=== PATIENT | female | born 1975 | race Caucasian/White ===

== ENCOUNTER 2023-09-02 11:54 | Emergency (ER) | payer OTHER ==
[2023-09-02] MEDS: Adenosine 6 MG/2 ML SDV IVPUSH ONE ×2 (12:15→12:22)
[2023-09-02 12:17] LABS: BASOPHILS ABSOLUTE AUTO 0.03 K/uL (0.00-0.10); BASOPHILS PERCENT AUTO 0.3 % (0.1-1.3); EOSINOPHILS PERCENT AUTO 1.1 % (0.0-5.4); HEMATOCRIT 25.5 % (34.3-46.0); HEMOGLOBIN 8.4 g/dL (11.2-15.5); IMMATURE GRAN ABSOLUTE AUTO 0.21 K/uL (0.00-0.23); IMMATURE GRAN PERCENT AUTO 2.4 % (0.0-0.7); LYMPHOCYTES ABSOLUTE AUTO 0.87 K/uL (0.8-3.3); LYMPHOCYTES PERCENT AUTO 9.8 % (11.4-47.7); MEAN CORPUSCULAR HEMOGLOBIN 35.9 pg (31.6-35.5); MEAN CORPUSCULAR HGB CONC 32.9 g/dL (31.6-35.5); MONOCYTES ABSOLUTE AUTO 1.04 K/uL (0.20-0.90); MONOCYTES PERCENT AUTO 11.7 % (3.3-12.6); NEUTROPHILS ABSOLUTE AUTO 6.62 K/uL (1.0-7.6); NEUTROPHILS PERCENT AUTO 74.7 % (40.0-78.1); PLATELET COUNT,PLT 140 K/uL (130-375); RED BLOOD CELL COUNT 2.34 M/uL (3.77-5.24); WHITE BLOOD CELL COUNT,WBC 8.9 K/uL (3.2-11.0)
[2023-09-02] MEDS: Diltiazem 25 MG/5 ML SDV IVPUSH ONE (12:36)
[2023-09-02] MEDS: Adenosine 6 MG/2 ML SDV ONE ×2 (12:37)
[2023-09-02 12:39] LABS: A/G RATIO 0.6 (1.2-2.2); ALANINE AMINOTRANSFERASE,ALT 72 U/L (12-78); ALKALINE PHOSPHATASE 100 U/L (46-116); ASPARTATE AMNIOTRANSFERASE,AST 94 U/L (15-37); BILIRUBIN TOTAL 17.3 mg/dL (0.2-1.0); BLOOD UREA NITROGEN,BUN 57 mg/dL (7-18); CALCIUM 9.4 mg/dL (8.5-10.1); CARBON DIOXIDE,CO2 22 mmol/L (21-32); CHLORIDE,CL 91 mmol/L (100-108); CREATININE 1.2 mg/dL (0.6-1.0); ESTIMATED GFR 55 mL/min (>60); GLUCOSE RANDOM 188 mg/dL (74-106); POTASSIUM,K 5.1 mmol/L (3.6-5.2); PROTEIN TOTAL,TP 8.3 g/dL (6.4-8.2); SODIUM,NA 126 mmol/L (140-148)
[2023-09-02 12:41] LABS: ANION GAP 18.1 mmol/L (5.0-14.0)
[2023-09-02] MEDS: Sodium Chloride 0.9% 1,000 ML IV SCH (13:01)
[2023-09-02] MEDS: Diltiazem 100 MG in Sodium Chloride 0.9% 100 ML IV SCH (13:02)
[2023-09-02] MEDS: Aspirin 81 MG Tab.Chew PO ONE (13:02)
[2023-09-02] MEDS: Famotidine 20 MG Tab PO ONE (13:05)
== END 2023-09-02 14:50 ==
LOC: JP.ED 11:54
DX: I48.91 Unspecified atrial fibrillation (principal); K74.60 Unspecified cirrhosis of liver; R79.89 Other specified abnormal findings of blood chemistry; Z79.899 Other long term (current) drug therapy
CPT/HCPCS: 36415; 71045; 80053; 82140; 84484; 85025; 93005; 96365; 96366; 96375; 99285; A9270; J0153; J3490; J7030